=== PATIENT | male | born 1985 | race Caucasian/White ===

== ENCOUNTER 2022-03-30 18:12 | Emergency (ER) | payer BC ==
[~2022-03-30] VITALS: Ht 170.2 cm; Wt 95.3 kg
--- NOTE | 2022-03-30 18:50 | NUR ---
Dr Cruz at bedside for evaluation.
[2022-03-30] MEDS ORDERED: HYDR-3980 PO (19:08)
--- NOTE | 2022-03-30 19:34 | NUR ---
Patient discharged to home in stable condition with . A/O x 4. NAD noted. Ambulatory with a steady gait. All belongings with patient. Written and verbal after care instructions given. Patient verbalizes understanding of instructions. Stressed follow up or return to ER for worsening s/s.
== END 2022-03-30 19:35 | disposition home or self-care (01) ==
LOC: ER 18:53
DX: M51.17 Intervertebral disc disorders with radiculopathy, lumbosacral region (principal)
CPT/HCPCS: A4663